=== PATIENT | female | born 1980 ===

== ENCOUNTER → 2023-08-04 12:39 | Outpatient (POV) | payer MEDICAID, SELFPAY ==
[2023-08-04 12:53] VITALS: BP 172/100; PULSE 116; RESP 18; O2SAT 94; BMI 29.8
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
== END | disposition home or self-care (01) ==
PROVIDERS: PCP Nurse Practitioner Family; Visit Provider Nurse Practitioner Family
DX: M54.12 Radiculopathy, cervical region (principal); M54.42 Lumbago with sciatica, left side; M54.41 Lumbago with sciatica, right side; G89.4 Chronic pain syndrome
CPT/HCPCS: 99202; G0463